=== PATIENT | female | born 1945 | race Caucasian/White ===

== ENCOUNTER → 2022-08-03 13:10 | Outpatient (BNVA) | payer MEDICARE, SELFPAY | PROVIDERS: PCP Internal Medicine; Visit Provider Psychiatry & Neurology Psychiatry | DX: F33.42 Major depressive disorder, recurrent, in full remission (principal) | CPT/HCPCS: 90833; 99212 ==

== ENCOUNTER 2023-03-16 14:52 | Outpatient (AMB) | payer MEDICARE, SELFPAY ==
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
== END 2023-03-16 17:43 | disposition home or self-care (01) ==
LOC: HO.HOP 14:52
PROVIDERS: PCP Internal Medicine; Visit Provider Psychiatry & Neurology Psychiatry
DX: F33.42 Major depressive disorder, recurrent, in full remission (principal)
CPT/HCPCS: 90833; 99213

== ENCOUNTER → 2023-03-16 14:52 | Outpatient (BNVA) | payer MEDICARE, SELFPAY | PROVIDERS: PCP Internal Medicine; Visit Provider Psychiatry & Neurology Psychiatry | DX: F33.42 Major depressive disorder, recurrent, in full remission (principal); Z79.899 Other long term (current) drug therapy | CPT/HCPCS: 99212 ==

== ENCOUNTER 2023-06-29 13:51 | Outpatient (AMB) | payer MEDICARE, SELFPAY ==
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
== END 2023-06-29 14:41 | disposition home or self-care (01) ==
LOC: HO.HOP 13:51
PROVIDERS: PCP Internal Medicine; Visit Provider Psychiatry & Neurology Psychiatry
DX: F33.42 Major depressive disorder, recurrent, in full remission (principal); F43.10 Post-traumatic stress disorder, unspecified
CPT/HCPCS: 90833; 99213

== ENCOUNTER → 2023-06-29 13:51 | Outpatient (BNVA) | payer MEDICARE, SELFPAY | PROVIDERS: PCP Internal Medicine; Visit Provider Psychiatry & Neurology Psychiatry | DX: F33.42 Major depressive disorder, recurrent, in full remission (principal); F43.10 Post-traumatic stress disorder, unspecified | CPT/HCPCS: 99212 ==

== ENCOUNTER 2023-11-29 13:54 | Outpatient (AMB) | payer MEDICARE, SELFPAY ==
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
== END 2023-11-29 14:51 | disposition home or self-care (01) ==
LOC: HO.HOP 13:54
PROVIDERS: PCP Internal Medicine; Visit Provider Psychiatry & Neurology Psychiatry
DX: F33.42 Major depressive disorder, recurrent, in full remission (principal); F43.10 Post-traumatic stress disorder, unspecified
CPT/HCPCS: 90833; 99213

== ENCOUNTER → 2023-11-29 13:54 | Outpatient (BNVA) | payer MEDICARE, SELFPAY | PROVIDERS: PCP Internal Medicine; Visit Provider Psychiatry & Neurology Psychiatry | DX: F33.42 Major depressive disorder, recurrent, in full remission (principal); F43.10 Post-traumatic stress disorder, unspecified; Z71.89 Other specified counseling; Z79.899 Other long term (current) drug therapy | CPT/HCPCS: 99212 ==

== ENCOUNTER 2024-04-24 14:09 | Outpatient (AMB) | payer MEDICARE, SELFPAY ==
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
--- OUTSIDE RECORDS SUMMARY | 2024-04-24 17:25 | XMS_ITS | Clinical Summary ---
Author Organization [facility] [address] [place] [address] [place] [phone] Phone Care Team Providers Care Medical Research Scientist Name Role Phone Luna Benitez MD Primary Care Provider [phone] Allergies Active Allergy Reactions Criticality Noted Date Comments Epinephrine High 03/18/2005 Medications albuterol HFA (PROAIR HFA ; PROVENTIL HFA ; VENTOLIN HFA) 90 mcg/actuation inhaler Inhale 2 puffs by mouth every 4 (four) hours if needed for wheezing or shortness of breath. Cough 0 Active aspirin 325 mg tablet Take 1 tablet (325 mg total) by mouth 1 (one) time each day. Active cholecalciferol (VITAMIN D-3) 50 mcg (2,000 unit) capsule Take 1 capsule (2,000 Units total) by mouth 1 (one) time each day. Active doxepin 3 mg tablet Take by mouth at bedtime. 1/[address] Ferraro 3 Active ferrous sulfate 325 mg (65 mg elemental iron) tablet Take by mouth 1 (one) time each day. Half tab Active docosahexaenoic acid/epa (FISH OIL ORAL) by Not Applicable route. Active FLUoxetine (PROzac) 20 mg capsule Take 1 capsule (20 mg total) by mouth 1 (one) time each day in the morning. 2 Active MULTIVITAMIN ORAL Take 1 tablet by mouth 1 (one) time each day. Active acetaminophen (Tylenol Arthritis Pain) 650 mg 8 hr tablet Take 2 tablets (1,300 mg total) by mouth every 8 (eight) hours if needed. Active sulindac (CLINORIL) 200 mg tablet Take 1 tablet (200 mg total) by mouth 1 (one) time each day if needed for mild pain. 90 tablet 1 5 Active magnesium 250 mg tablet Take by mouth. Activ e lovastatin (MEVACOR) 40 mg tablet Take 1 tablet (40 mg total) by mouth at bedtime. at bedtime. 90 tablet 1 5 Active Active Problems Problem Noted Date Diagnosed Date Osteopenia 04/30/2021 Overview (01/15/2024): 04/29/21- 14% risk of major osteoporotic fracture and 2.1% risk of hip fracture over the next 10 years. Insomnia 05/03/2020 Arthritis 04/25/2019 Assessment & Plan (03/23/2024 3:26 PM EST): Continue with sulindac as needed. Pure hypercholesterolemia 03/23/2005 Assessment & Plan (03/23/2024 3:26 PM EST): Continue with lovastatin, recheck lipid panel Orders: Comprehensive metabolic panel; Future Lipid panel with reflex to direct LDL; Future CBC and differential; Future Abnormality of gait 03/18/2005 Overview (01/15/2024): MINIMAL DUE TO CVA Depressive disorder 03/18/2005 Headache 03/18/2005 Ostium secundum type atrial septal defect 2005 Bundle branch block, left 03/18/2005 Acute, but ill-defined, cerebrovascular disease 03/18/2005 Encounters Date Type Department Care Team Description 03/23/2024 1:30 PM EST Office Visit Adult Medicine [address] [phone] Luna Benitez MD Encounter for annual wellness visit (AWV) in Medicare patient (Primary Dx); Pure hypercholesterolemia; Other specified disorders of bone density and structure, other site; Arthritis from Last 3 Months Immunizations Name Administration Dates Next Due Influenza trivalent, 0.5mL (Fluad) 65yo and olde r 11/26/2022,01/22/2021 Influenza trivalent, 0.5mL, preservative free (Fluarix; FluLaval; Fluzone) ages 6mo and older (Afluria) 3 years and older 11/26/2010 Pfizer SARS-CoV-2 COVID-19, mRNA, LNP-S, preservative free 06/06/2020,05/14/2020 Pneumococcal conjugate 20 [facility] (Prevnar 20, PCV 20) 2mo and older 10/24/2022 Respiratory syncytial virus (RSV), unspecified 1 Td Tetanus diptheria (Tdvax) 7yo and older 05/27 Tdap Tetanus diptheria acell ular pertussis (Boostrix; Adacel) 7yo and older 07/14/2022,09/08/2011 Surgical History Surgery Date Site/Laterality Comments OTHER SURGICAL HISTORY PROCEDURE: [place] OBLTRJ AORTOPULMONARY SEPTAL DEFECT W/O BYPASS; COMMENT: ATRIAL, CLOSURE AT [facility] GENERAL COLONOSCOPY 05/10/08 PROCEDURE: MN COLONOSCOPY STOMA DX INCLUDING COLLJ SPEC SPX; COMMENT: Up to cecum, good preparation, normal colon exam Medical History Medical History Date Comments Depressive disorder, not els ewhere classified DX:Depressive disorder, not elsewhere classified Other left bundle branch block D X:Other left bundle branch block Acute, but ill-defined, cerebrovascular disease DX:Acute, but ill-defined, cerebrovascular disease; 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 0) Abnormality of gait DX:Abnormali ty of gait; COMMENT: MINIMAL DUE TO CVA Ostium secundum type atrial septal defect DX:Ostium secundum type atri al septal defect Other left bundle branch block 03/18/2005 D X:Other left bundle branch block Ostium secundum type atrial septal defect 03/18/2005 DX:Ostium secundum type atri al septal defect Arthritis 04/25/2019 DX:Arthritis Acute, but ill-defined, cerebrovascular disease 03/18/2005 Family History Medical History Relation Name Comments Other: extra chromosone Brother 1 Other: nystygmas Daughter 1 Coronary artery disease Father Heart attack Father 36 AND 56 Y/O ( at 56) Hyperlipidemia Father high Hypertension Father Other: heart Father Other: parkinsons Maternal Grandmother Allergies Mother Heart failure Mother at 89 Hyperlipidemia Mother high Other: blood clot in leg Mother Other: detached retina Mother Breast cancer Other mat and pat cousins Mental illness Paternal Grandmother Arthritis Sister 1 Other: blood clot in leg Sister 2 Other: add Son 1 Colon cancer Neg Hx Ovarian cancer Neg Hx Relation Name Status Comments Brother 1 Brother 2 Alive Daughter 1 Daughter 2 Alive Father [place], 1ST AGE 36 Maternal Grandfather Maternal Grandmother Mother CHF Other mat and pat cousins Paternal Grandfather Paternal Grandmother Sister 1 Sister 2 Sister 3 Alive Son 1 Son 2 Alive Son 3 Alive Social History Tobacco Use Types Packs/Day Years Used Date Smoking Tobacco: Never Smokeless Tobacco: Never Tobacco Cessation:Counseling Given: Not Answered Alcohol Use Standard Drinks/Week Comments Yes 0 (1 standard drink = 0.6 oz pur e alcohol) Comments No Sex and Gender Information Value Date Recorded Sex Assigned at Not on file Legal Sex Female 6:25 PM EST Gender Identity Not on file Sexual Orientation Not on file Obstetrics History Last Filed Vital Signs Vital Sign Reading Time Taken Comments Blood Pressure 128/80 03/23/2024 1:54 PM EST Pulse 72 03/23/2024 1:54 PM EST Temperature 36.6 ??C (97.9 ??F) 03/23/2024 1:54 PM ES T Respiratory Rate 14 03/23/2024 1:54 PM EST Oxygen Saturation - - Inhaled Oxygen Concentration - - Weight 101 kg (223 lb) 03/23/2024 1:54 PM EST Height 160 cm (5' 3 ) 03/23/2024 1:54 PM EST Body Mass Index 39.5 03/23/2024 1:54 PM EST Plan of Treatment Upcoming Encounters Date Type Department Care Team (Late st Contact Info) Description 06/26/2024 2:00 PM EDT Appointment Bone Density - [address] [phone] 09/20/2024 1:00 PM EDT Office Visit Adult Medicine [place] - [address] [phone] Luna Benitez MD [address] [place] [phone] 09/26/2024 1:20 PM EDT Appointment Radiology Department - [address] [phone] Health Maintenance Due Date Last Done Comments Social Influencers of Health Screening 01/16/2022 COVID-19 Vaccine ( - season) 2023 01/26/2021, 06/06/2020, 05/14/2020 Influenza Vaccine (#1) 2023 , 03/11/2022, 01/22/2021, Additional history exists Depression Screening 03/23/2025 03/23/2024, 03/15/19 24 Falls Risk Assessment 03/23/2025 03/23/2024 Medicare Annual Wellness Visit 03/23/2025 03/23/2024 Colorectal Cancer Screening: FIT-DNA (Cologuard) 08/13/2025 08/13/2022 Cholesterol Screening (Lipid Panel) 04/17/2029 04/17/2024, 09/01/2023, 09/01/2023 Osteoporosis Screening (Bone Density Screening) 04/30/2031 04/29/2021 DTaP,Tdap,and Td Vaccines (4 - Td or Tdap) 07/14/2032 07/14/2022, 09/08/2011, 05/27/2000 Hepatitis C Screening Completed 08/26/2017 Pneumococcal Vaccine: 50+ Years Completed 10/24/2022 Zoster Vaccines Completed 11/14/2022, 05/14/2022 RSV Immunization Patients 60+ Years Old Completed 11/26/2022, 11/14/2022 RSV Immunization Patients Under 20 months Aged Out 11/26/2022 No longer eligible based on patient's age to complete this topic HIB Vaccines Aged Out No longer eligi ble based on patient's age to complete this topic HPV Vaccines Aged Out No longer eligi ble based on patient's age to complete this topic Hepatitis A Vaccines Aged Out No long er eligible based on patient's age to complete this topic Hepatitis B Vaccines Aged Out No long er eligible based on patient's age to complete this topic IPV Vaccines Aged Out No longer eligi ble based on patient's age to complete this topic MMR Vaccines Aged Out No longer eligi ble based on patient's age to complete this topic Meningococcal ACWY Vaccine Aged Out N o longer eligible based on patient's age to complete this topic Meningococcal B Vacine Aged Out No lo nger eligible based on patient's age to complete this topic Varicella Vaccines Aged Out No longer eligible based on patient's age to complete this topic Procedures Procedure Name Priority Date/Time Associated Diagnosis Comments CBC WITH AUTO DIFFERENTIAL Routine 04/17/2024 12:31 PM EST Pure hypercholesterolemia COMPREHENSIVE METABOLIC PANEL Routine 04/17/2024 12:31 PM EST Pure hypercholesterolemia LIPID PANEL WITH REFLEX TO DIRECT LDL Routine 04/17/2024 12:31 PM EST Pure hypercholesterolemia CBC AND DIFFERENTIAL Routine 04/17/2024 12:31 PM EST Pure hypercholesterolemia DEPRESSION SCREENING Routine 03/15/2023 DXA BONE DENSITY STUDY 1+ SITS AXIAL SKEL Routine 04/29/2021 11:23 AM EDT Encounter for screening for osteoporosis HEPATITIS C SCREENING Routine 08/26/2017 from Last 3 Months or Most Recently Relevant to Health Maintenance Results * (ABNORMAL) Lipid panel with reflex to direct LDL (04/17/2024 12:31 PM EST) Cholesterol 179 0 - 200 mg/dL LAB CHEMISTRY METHOD 04/17/2024 4:56 PM [facility] Triglycerides 80 0 - 150 mg/dL LAB CHEMISTRY METHOD 04/17/2024 4:56 PM [facility] HDL 59 >=40 mg/dL LAB CHEMISTRY METHOD 04/17/2024 4:56 PM [facility] LDL Calculated 104(H) 0 - 100 mg/dL LAB CHEMISTRY METHOD 04/17/2024 4:56 PM [facility] VLDL Cholesterol Cornelio 16 mg/dL LAB CHEMISTRY METHOD 04/17/2024 4:56 PM [facility] Non HDL Chol. (LDL+VLDL) 120 <145 mg/dL LAB CHEMISTRY METHOD 04/17/2024 4:56 PM [facility] Chol/HDL Ratio 3.0 0.0 - 4.4 LAB CHEMISTRY METHOD 04/17/2024 4:56 PM [facility] Blood Venous blood specimen / Unknown Venipuncture / Unknown 04/17/2024 12:31 PM EST 04/17/2024 12:31 PM EST us Luna Benitez MD LAB BLOOD ORDERABLES Final Resul t [facility] [address] [place] [address], * (ABNORMAL) CBC auto differential (04/17/2024 12:31 PM EST) WBC 5.8 4.8 - 10.8 K/mcL LAB HEMETOLOGY METHOD 04/17/2024 3:39 PM [facility] RBC 3.90 3.80 - 4.80 M/mcL LAB HEMETOLOGY METHOD 04/17/2024 3:39 PM [facility] Hemoglobin 12.6 11.5 - 16.0 g/dL LAB HEMETOLOGY METHOD 04/17/2024 3:39 PM [facility] Hematocrit 38.1 35.0 - 47.0 % LAB HEMETOLOGY METHOD 04/17/2024 3:39 PM [facility] MCV 98.7(H) 79.0 - 98.0 FL LAB HEMETOLOGY METHOD 04/17/2024 3:39 PM [facility] MCH 32.6(H) 27.0 - 32.0 pcg LAB HEMETOLOGY METHOD 04/17/2024 3:39 PM [facility] MCHC 33.1 32.0 - 37.0 g/dL LAB HEMETOLOGY METHOD 04/17/2024 3:39 PM [facility] RDW 13.2 11.0 - 15.0 % LAB HEMETOLOGY METHOD 04/17/2024 3:39 PM [facility] Platelets 283 130 - 400 K/mcL LAB HEMETOLOGY METHOD 04/17/2024 3:39 PM [facility] MPV 10.6 7.0 - 11.0 FL LAB HEMETOLOGY METHOD 04/17/2024 3:39 PM [facility] NRBC 0.0 <1.0 % LAB HEMETOLOGY METHOD 04/17/2024 3:39 PM [facility] NRBC Absolute 0.00 <0.10 K/mcL LAB HEMETOLOGY METHOD 04/17/2024 3:39 PM [facility] Neutrophils Relative 68.6 % LAB HEMETOLOGY METHOD 04/17/2024 3:39 PM [facility] Lymphocytes Relative 17.7 % LAB HEMETOLOGY METHOD 04/17/2024 3:39 PM [facility] Monocytes Relative 6.3 % LAB HEMETOLOGY METHOD 04/17/2024 3:39 PM [facility] Eosinophils Relative 6.3 % LAB HEMETOLOGY METHOD 04/17/2024 3:39 PM [facility] Basophils Relative 0.9 % LAB HEMETOLOGY METHOD 04/17/2024 3:39 PM [facility] Immature Granulocytes Relative 0.2 % LAB HEMETOLOGY METHOD 04/17/2024 3:39 PM [facility] Neutrophils Absolute 4.00 1.50 - 7.00 K/mcL LAB HEMETOLOGY METHOD 04/17/2024 3:39 PM [facility] Lymphocytes Absolute 1.03 1.00 - 5.00 K/mcL LAB HEMETOLOGY METHOD 04/17/2024 3:39 PM [facility] Monocytes Absolute 0.37 0.20 - 1.00 K/mcL LAB HEMETOLOGY METHOD 04/17/2024 3:39 PM [facility] Eosinophils Absolute 0.37 0.00 - 0.50 K/mcL LAB HEMETOLOGY METHOD 04/17/2024 3:39 PM [facility] Basophils Absolute 0.05 0.00 - 0.20 K/mcL LAB HEMETOLOGY METHOD 04/17/2024 3:39 PM [facility] Immature Granulocytes Absolute 0.01 0.00 - 0.03 K/mcL LAB HEMETOLOGY METHOD 04/17/2024 3:39 PM [facility] Blood Venous blood specimen / Unknown Venipuncture / Unknown 04/17/2024 12:31 PM EST 04/17/2024 12:31 PM EST us Luna Benitez MD LAB BLOOD ORDERABLES Final Resul t [facility] [address] [place] [address], * Comprehensive metabolic panel (04/17/2024 12:31 PM EST) Sodium 140 133 - 145 mmol/L LAB CHEMISTRY METHOD 04/17/2024 4:56 PM [facility] Potassium 4.6 3.5 - 5.5 mmol/L LAB CHEMISTRY METHOD 04/17/2024 4:56 PM [facility] Chloride 108 96 - 110 mmol/L LAB CHEMISTRY METHOD 04/17/2024 4:56 PM [facility] CO2 28 21 - 32 mmol/L LAB CHEMISTRY METHOD 04/17/2024 4:56 PM [facility] Anion Gap 4 3 - 11 LAB CHEMISTRY METHOD 04/17/2024 4:56 PM [facility] Glucose 90 70 - 100 mg/dL LAB CHEMISTRY METHOD 04/17/2024 4:56 PM [facility] BUN 19 5 - 25 mg/dL LAB CHEMISTRY METHOD 04/17/2024 4:56 PM [facility] Creatinine 0.86 0.50 - 1.10 mg/dL LAB CHEMISTRY METHOD 04/17/2024 4:56 PM [facility] eGFR 70 >=60 mL/min/1. 73m2 LAB CHEMISTRY METHOD 04/17/2024 4:56 PM [facility] Comment:Calculation based on the??Chronic Kidney Disease Epidemiology Collaboration (CKD-EPI) equation refit??without adjustment for race. BUN/Creatinine Ratio 22.1 LAB CHEMISTRY METHOD 04/17/2024 4:56 PM [facility] Calcium 9.0 8.5 - 10.5 mg/dL LAB CHEMISTRY METHOD 04/17/2024 4:56 PM [facility] AST (SGOT) 18 10 - 42 unit/L LAB CHEMISTRY METHOD 04/17/2024 4:56 PM [facility] ALT (SGPT) 23 10 - 60 unit/L LAB CHEMISTRY METHOD 04/17/2024 4:56 PM [facility] Alkaline Phosphatase 108 42 - 121 unit/L LAB CHEMISTRY METHOD 04/17/2024 4:56 PM [facility] Total Protein 6.5 6.0 - 8.0 g/dL LAB CHEMISTRY METHOD 04/17/2024 4:56 PM [facility] Albumin 3.6 3.2 - 5.0 g/dL LAB CHEMISTRY METHOD 04/17/2024 4:56 PM [facility] Total Bilirubin 0.5 0.0 - 1.4 mg/dL LAB CHEMISTRY METHOD 04/17/2024 4:56 PM [facility] Blood Venous blood specimen / Unknown Venipuncture / Unknown 04/17/2024 12:31 PM EST 04/17/2024 12:31 PM EST us Luna Benitez MD LAB BLOOD ORDERABLES Final Resul t [facility] [address] [place] [address], * Depression Screening (03/15/2023) Depression Screening abstracted Historical Provider HEALTH MAINTENANCE Final Result * DXA BONE DENSITY STUDY 1+ SITS AXIAL SKEL (04/29/2021 11:23 AM EDT) Anatomical Region Laterality Modality Bone Densitometr y 04/25/2019 11:2 0 AM EDT Narrative 04/29/2021 6:11 PM EDT BONE DENSITY SCAN (DEXA): FINDINGS: Lumbar Spine T-score is 0.5. ?? (SD relative to 20-29 y/o adult) Z-score is 2.8. ??(SD relative to age matched peers) This is considered normal by WHO criteria. Left Hip T-score is -1.3. Z-score is 0.7. This is considered osteopenia by WHO criteria. Comparison exam(s): 01/03/2009 at 12/31/2005. Lumbar spine: 18.0% increase in bone mineral density compared with 2008, statistically significant at the 95% confidence level. ??No statistically significant change compared with 2005. Left hip: 11.7% decrease in bone mineral density compared with 2008, statistically significant at the 95% confidence level. ??No statistically significant change compared with 2005. IMPRESSION: IMPRESSION: Osteopenia by WHO criteria. This patient has a 14% risk of major osteoporotic fracture and a 2.1% risk of hip fracture over the next 10 years. (World Health Organization Fracture Risk Assessment) [facility] Department of Internal Medicine recommends using National Osteoporosis Foundation (NOF) guidelines in treatment decisions related to osteoporosis. NOF guidelines suggest considering treatment for postmenopausal women and men aged 50 or older presenting with the following: History of hip or vertebral fracture. T-score = -2.5 (DXA) at the femoral neck, total hip, or spine, after appropriate evaluation to exclude secondary causes. Low bone mass (T-score between -1.0 and -2.5 at the femoral neck or spine) AND a 10-year probability of a hip fracture = 3% OR a 10-year probability of a major osteoporosis-related fracture = 20% based on the [place]-adapted WHO algorithm Please note that all treatment decisions require clinical judgment and consideration of individual patient factors, including patient preferences, co-morbidities, previous drug use, risk factors not captured in the FRAX model (e.g., frailty, falls, vitamin D deficiency, increased bone turnover, interval significant decline in bone density) and possible under- or over-estimation of fracture risk by FRAX. Optional alternative screening schedule based on julieta Tejead., [facility] March 04, 2011 for patients with osteopenia (based on hip BMD T-score) is as follows: * ??advanced osteopenia (T scores -2.00 to -2.49), BMD testing every year * ??moderate osteopenia (T scores -1.50 to -1.99), BMD testing every 5 years mild osteopenia or normal BMD (T scores -1.50 and higher), BMD testing every 15 years Procedure Note Blanche Pearson MD - 02/02/2022 BONE DENSITY SCAN (DEXA): FINDINGS: Lumbar Spine T-score is 0.5. (SD relative to 20-29 y/o adult) Z-score is 2.8. (SD relative to age matched peers) This is considered normal by WHO criteria. Left Hip T-score is -1.3. Z-score is 0.7. This is considered osteopenia by WHO criteria. Comparison exam(s): 01/03/2009 at 12/31/2005. Lumbar spine: 18.0% increase in bone mineral density compared with 2008,statistically significant at the 95% confidence level. No statistically significantchange compared with 2005. Left hip: 11.7% decrease in bone mineral density compared with 2008,statistically significant at the 95% confidence level. No statistically significant change comparedwith 2005. IMPRESSION: IMPRESSION: Osteopenia by WHO criteria. This patient has a 14% risk of majorosteoporotic fracture and a 2.1% risk of hip fracture over the next 10 years. (World HealthOrganization Fracture Risk Assessment) [facility] Department of Internal Medicine recommendsusing National Osteoporosis Foundation (NOF) guidelines in treatment decisions related toosteoporosis. NOF guidelines suggest considering treatment for postmenopausal women and menaged 50 or older presenting with the following: History of hip or vertebral fracture. T-score = -2.5 (DXA) at the femoral neck, total hip, or spine, afterappropriate evaluation to exclude secondary causes. Low bone mass (T-score between -1.0 and -2.5 at the femoral neck or spine)AND a 10-year probability of a hip fracture = 3% OR a 10-year probability of a majorosteoporosis-related fracture = 20% based on the [place]-adapted WHO algorithm Please note that all treatment decisions require clinical judgment andconsideration of individual patient factors, including patient preferences, co- morbidities,previous drug use, risk factors not captured in the FRAX model (e.g., frailty, falls, vitaminD deficiency, increased bone turnover, interval significant decline in bone density) andpossible under- or over-estimation of fracture risk by FRAX. Optional alternative screening schedule based on [facility]i [facility]eda [facility]., [facility] for patients with osteopenia (based on hip BMD T-score) is as follows: * advanced osteopenia (T scores -2.00 to -2.49), BMD testing every year * moderate osteopenia (T scores -1.50 to -1.99), BMD testing every 5years mild osteopenia or normal BMD (T scores -1.50 and higher), BMD testingevery 15 years Vianca WALDRON IMG DXA PROCEDURES Final R esult * Hepatitis C Screening (08/26/2017) [facility] Hepatitis C Screening abstracted Historical Provider HEALTH MAINTENANCE Final Result from Last 3 Months or Most Recently Relevant to Health Maintenance Insurance MEDICARE [facility] Care Teams Medical Research Scientist Relationship Specialty Start Date End Date Luna Benitez MD [address] [place] [id number] PCP - General Internal Medicine 07/22/21
== END 2024-04-24 14:12 | disposition home or self-care (01) ==
LOC: HO.HOP 14:09
PROVIDERS: PCP Internal Medicine; Visit Provider Psychiatry & Neurology Psychiatry
DX: F33.42 Major depressive disorder, recurrent, in full remission (principal); F43.10 Post-traumatic stress disorder, unspecified
CPT/HCPCS: 99214

== ENCOUNTER → 2024-04-24 14:09 | Outpatient (BNVA) | payer MEDICARE, SELFPAY | PROVIDERS: PCP Internal Medicine; Visit Provider Psychiatry & Neurology Psychiatry | DX: F33.42 Major depressive disorder, recurrent, in full remission (principal); F43.10 Post-traumatic stress disorder, unspecified | CPT/HCPCS: 99212 ==

== ENCOUNTER 2025-01-31 11:30 | Outpatient (AMB) | payer MEDICARE, SELFPAY ==
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
--- OUTSIDE RECORDS SUMMARY | 2025-01-31 15:09 | XMS_ITS | Clinical Summary ---
Author Organization [facility] Address [address] [place] [address] Phone Care Team Providers Care Fitness Leader Name Role Phone Pcp, Unknown Primary Care Provider Unavailabl e Allergies Active Allergy Reactions Criticality Noted Date Comments Epinephrine Other (See Comments) 09/04/2003 excessive tachycardia Medications lovastatin (MEVACOR) 40 MG tablet Take 40 mg by mouth nightly at bedtime. Active cholecalciferol 125 mcg/mL (5,000 unit/mL) oral drops Take by mouth. Acti ve sulindac (CLINORIL) 200 MG tabletIndicatio ns:using once daily Take 200 mg by mouth 2 (two) times a day with meals. Indications: using once daily Active FLUoxetine (PROZAC) 20 MG tablet Take 20 mg by mouth daily. Active ALBUTEROL INHL Inhale into the lungs. Active aspirin 325 MG tablet Take 325 mg by mouth daily. Active FA/mv,Ca,iron,m in/lycopene/lut (MULTIVITAL ORAL) Take by mouth. Activ e pseudoephedrine (SUDAFED) 60 MG tablet Take 1 tablet (60 mg total) by mouth every 6 (six) hours as needed for congestion. 30 tablet 0 Active Additional Information Patient not taking.Reported on 08/31/2021 AMOXICILLIN ORAL Take by mouth. Activ e acetaminophen (TYLENOL) 500 MG tablet Take 500 mg by mouth every 6 (six) hours as needed for pain (specific location in comments). Active Active Problems Problem Noted Date Diagnosed Date Hay fever 09/04/2003 Overview (05/03/2017): hayfever;PHS Allergy Remediation Social History Tobacco Use Types Packs/Day Years Used Date Smoking Tobacco: Never Smokeless Tobacco: Never Education Answer Date Recorded Are you interested in more education? Not on marcie e 06/14/2022 Are you concerned about learning? Not on file 06/14/2022 No 06/14/2022 No 06/14/2022 Digital Access Answer Date Recorded No 07/11/2022 No 07/11/2022 No 07/11/2022 Reliable internet access at home? Not on file 07/11/2022 Device with a working camera? Not on file Comments Unknown Sex and Gender Information Value Date Recorded Sex Assigned at Not on file Legal Sex Female 6:17 PM EST Gender Identity Not on file Sexual Orientation Not on file Last Filed Vital Signs Vital Sign Reading Time Taken Comments Blood Pressure 121/88 08/31/2021 2:33 PM EDT Pulse 68 08/31/2021 2:33 PM EDT Temperature 36.8 C (98.2 F) 08/31/2021 2:33 PM EDT Respiratory Rate 16 08/31/2021 2:33 PM EDT Oxygen Saturation 99% 08/31/2021 2:33 PM EDT Inhaled Oxygen Concentration - - Weight 97.5 kg (215 lb) 06/03/2020 12:57 PM EDT per pt Height 160 cm (5' 3 ) 03/12/2019 3:39 PM EST Body Mass Index 38.09 03/12/2019 3:39 PM EST Plan of Treatment Health Maintenance Due Date Last Done Comments LIPID PANEL 1947 DEPRESSION SCREENING 1959 HEPATITIS C SCREENING 08/20/1965 PNEUMOCOCCAL VACCINES (50+ years) (1 of 1 - PCV) 08/20/1997 ZOSTER VACCINES (1 of 2) 08/20/1997 OSTEOPOROSIS SCREENING INITI AL (ONE-TIME) 08/20/2012 Adult Td,Tdap Booster 09/07/2021 09/08/2011 , 05/27/2000 RSV VACCINE (1 - 1-dose 75+ series) 08/20/2022 INFLUENZA VACCINE (#1) 2024 , 11/26/2010 COVID-19 VACCINE (4 - 2024-2 6 season) 2024 01/26/2021, 06/06/2020, 05/14/2020 SMOKING STATUS SCREENING (On ce After 26 Yrs) Completed 08/31/2021 HEPATITIS A VACCINES Aged Out No long er eligible based on patient's age to complete this topic HIB VACCINES Aged Out No longer eligi ble based on patient's age to complete this topic MENINGOCOCCAL VACCINES (ACWY) Aged Out No longer eligible based on patient's age to complete this topic MENINGOCOCCAL VACCINES (B) Aged Out N o longer eligible based on patient's age to complete this topic Medical Devices Not on file Insurance [facility] MEDEX SUPPLEMENT MEDICARE PART A & B [employer] MEDEX SUPPLEMENT MEDICARE PART A & B [employer] MEDEX SUPPLEMENT MEDICARE PART A & B [employer] MED[employer] SUPPLEMENT MEDICARE PART A & B [employer] MED[employer] SUPPLEMENT MEDICARE PART A & B [employer] MEDEX SUPPLEMENT MEDICARE PART A & B [employer] MEDEX SUPPLEMENT MEDICARE PART A & B [facility] MEDEX SUPPLEMENT MEDICARE PART A & B [email or web address] CROSS MEDEX SUPPLEMENT Member Subscriber Plan / Payer (Ef fective 2012-Present) Name:Maeve Liang Relation to Subscriber:Self Name:Maeve Liang Payer ID:[id number] (NAIC) Type:Indemnity Address: [address] [place] [id number] Care Teams Fitness Leader Relationship Specialty Start Date End Date Pcp, Unknown PCP - General 08/31/21 Additional Source Comments The information contained in this document represents components of the legal health record. It is not the complete legal health record.[facility]
--- OUTSIDE RECORDS SUMMARY | 2025-01-31 15:09 | XMS_ITS ---
Author Name [facility] Organization Unknown Care Team Organization Name Specialty Phone Email Start Date End Da te [facility] ACO 10/03/2024 [facility] Luna Benitez Primary Care 07/23/2022 024 [facility] [place], PROVIDER Primary Care 12/22/202109/14
--- OUTSIDE RECORDS SUMMARY | 2025-01-31 15:09 | XMS_ITS | Clinical Summary ---
Author Organization [facility] [address] [place] [address] [place] [phone] Phone Care Team Providers Care Bridge Club Manager Name Role Phone Luna Benitez MD Primary Care Provider [phone] Allergies Active Allergy Reactions Criticality Noted Date Comments Epinephrine High 03/18/2005 Medications albuterol HFA (PROAIR HFA ; PROVENTIL HFA ; VENTOLIN HFA) 90 mcg/actuation inhaler Inhale 2 puffs by mouth every 4 (four) hours if needed for wheezing or shortness of breath. Cough 0 Active cholecalciferol (VITAMIN D-3) 50 mcg (2,000 unit) capsule Take 1 capsule (2,000 Units total) by mouth 1 (one) time each day. Active ferrous sulfate 325 mg (65 mg [...] every 8 (eight) hours if needed. Active magnesium 250 mg tablet Take by mouth. Activ e sulindac (CLINORIL) 200 mg tablet TAKE 1 TABLET(200 MG) BY MOUTH 1 TIME EACH DAY NEEDED FOR MILD PAIN 90 tablet 1 Active atorvastatin (LIPITOR) 40 mg tabletIndicatio ns:Coronary artery disease involving [place] coronary artery of [place] heart without angina pectoris Take 1 tablet (40 mg total) by mouth 1 (one) time each day. 30 each 5 11/22/19 26 Active aspirin 81 mg EC tabletIndicatio ns:Coronary artery disease involving [place] coronary artery of [place] heart without angina pectoris Take 1 tablet (81 mg total) by mouth 1 (one) time each day. 30 each 11/22/19 Active Active Problems Problem Noted Date Diagnosed Date Class 2 obesity 11/21/2024 Coronary artery disease invo lving [place] coronary artery of [place] heart without angina pectoris 11/21/2024 Overview (11/21/2024): 10/12/24 NM STRESS TEST WITH MYOCARDIAL PERFUSION 10/12/2024, 10/17/2024 10/12/2024 Impression 1. Abnormal pharmacological nuclear stress test. 2. Symptoms: No chest pain during the regadenoson infusion 3. Stress ECG: Nondiagnostic stress ECG in the setting of a baseline left bundle branch block. 4. Myocardial perfusion imaging: - Myocardial perfusion imaging of the left ventricle revealed a medium in size and mild in intensity mostly reversible perfusion defect in the mid to apical anterior wall and mid anteroseptal wall, suggestive of ischemia. - No fixed perfusion defects to suggest the presence of an infarct 5. TID was normal at 0.83. 6. Gated images revealed normal LV wall motion and thickening; with a normal LV systolic function (LVEF 78%). Signed by: Adriana Camejo NP on 10/12/2024 12:33 PM, Signed by: Roderick Gilliam MD on 10/17/2024 6:47 PM October 2024 - angiogram in setting of abnormal stress test, LBBB, and risk factors showing mild luminal irregularities of the LM and left circumflex, 50% mid LAD bifurcation lesion iFR negative, 50% stenosis of prox RCA - medical therapy recommended October 2024 - inpatient echocardiogram showing severe concentric left ventricular hypertrophy, preserved LV systolic function LVEF 55%, grade I diastolic dysfunction, noted Amplatzer septal occluder device, mild MR and AI Assessment & Plan (11/21/2024 11:01 AM EDT): Catheterization from 2024 showed moderate LAD and RCA disease (LAD iFR negative) with no other significant disease - medically managed. Last Nuclear stress test showed mid to apical anterior wall and mid anteroseptal wall ischemia which was felt to be false positive based on angiogram results. Echocardiogram from 2024 showed preserved LV systolic function with no RWMAs which is unusual given her LBBB. No anginal symptoms. Continue with baby aspirin. Will switch lovastatin to atorvastatin 40 mg daily. We discussed risk reduction through lifestyle choices including healthy diet, routine exercise and weight management. Orders: atorvastatin (LIPITOR) 40 mg tablet; Take 1 tablet (40 mg total) by mouth 1 (one) time each day. aspirin 81 mg EC tablet; Take 1 tablet (81 mg total) by mouth 1 (one) time each day. Cardiomyopathy 11/21/2024 Assessment & Plan (11/21/2024 11:01 AM EDT): Given her LBBB and severe concentric left hypertrophy without diagnosis of hypertension will get cardiac MRI. Orders: MR Cardiac Morphology and Function wo and w Contrast; Future History of closure of atrial septal defect (ASD) using septal occluder device 11/21/2024 Assessment & Plan (11/21/2024 11:31 AM EDT): Noted on echocardiogram. Assume this is related to previous history of CVA. Continue with aspirin. Acute chest pain 11/20/2024 Positive cardiac stress test 11/20/2024 Obesity, morbid 10/30/2024 Assessment & Plan (11/21/2024 11:31 AM EDT): BMI 39.20. We discussed risk reduction through lifestyle choices including healthy diet, routine exercise and weight management. Consider with GLP1 injection. History of CVA (cerebrovascular accident) 2024 Assessment & Plan (11/21/2024 11:31 AM EDT): No new or worsening neurologic symptoms. Continue with baby aspirin. Will switch lovastatin to atorvastatin 40 mg daily. We discussed risk reduction through lifestyle choices including healthy diet, routine exercise and weight management. Osteopenia 04/30/2021 Overview (01/15/2024): 04/29/21- 14% risk of major osteoporotic fracture and 2.1% risk of hip fracture over the next 10 years. Insomnia 05/03/2020 Arthritis 04/25/2019 Assessment & Plan (03/23/2024 3:26 PM EST): Continue with sulindac as needed. Pure hypercholesterolemia 03/23/2005 Assessment & Plan (11/21/2024 11:31 AM EDT): Last LDL 101. Will switch lovastatin to atorvastatin given coronary artery disease and history of CVA. Assessment & Plan (03/23/2024 3:26 PM EST): Continue with lovastatin, recheck lipid panel Orders: Comprehensive metabolic panel; Future Lipid panel with reflex to direct LDL; Future CBC and differential; Future Abnormality of gait 03/18/2005 Overview (01/15/2024): MINIMAL DUE TO CVA Depressive disorder 03/18/2005 Ostium secundum type atrial septal defect 2005 Bundle branch block, left 03/18/2005 Assessment & Plan (11/21/2024 11:31 AM EDT): Longstanding and apparently asymptomatic. Angiogram showed no attributable epicardial disease. Orders: ECG 12 lead MR Cardiac Morphology and Function wo and w Contrast; Future Hay fever 09/04/2003 Overview (11/21/2024): hayfever;PHS Allergy Remediation Resolved Problems Problem Noted Date Diagnosed Date Resolved Date Headache 03/18/2005 10/30/2024 Encounters Date Type Department Care Team Description 12/17/2024 10:35 AM EST Lab Draw Station [address] [phone] Cardiomyopathy, unspecified type (CMS/[facility] V24, CMS/HCC V28); Bundle branch block, left 12/12/2024 Telephone [facility] [address] [place] [address] aVughn Jansen MD 11/30/2024 Telephone [facility] [address] [place] [address] Sudarshan Thurston NP 11/21/2024 9:40 AM EDT Office Visit [facility] [address] [place] [address] Sudarshan Thurston NP Bundle branch block, left (Primary Dx); Pure hypercholesterolemia; Obesity, morbid (CMS/HCC V24, CMS/HCC V28); History of CVA (cerebrovascular accident); Coronary artery disease involving [place] coronary artery of [place] heart without angina pectoris; Cardiomyopathy, unspecified type (CMS/HCC V24, CMS/HCC V28); History of closure of atrial septal defect (ASD) using septal occluder device from Last 3 Months Immunizations Immunization Administration Dates Next Due Influenza trivalent, 0.5mL (Fluad) 65yo and olde r 11/26/2022,01/22/2021 Influenza trivalent, 0.5mL, preservative free (Fluarix; FluLaval; Fluzone) ages 6mo and older (Afluria) 3 years and older 11/26/2010 [employer] SARS-CoV-2 COVID-19, mRNA, LNP-S, preservative free 06/06/2020,05/14/2020 Pneumococcal conjugate 20 va lent (Prevnar 20, PCV 20) 2mo and older 10/24/2022 Respiratory syncytial virus (RSV), unspecified 1 Td Tetanus diptheria (Tdvax) 7yo and older 05/27 Tdap Tetanus diptheria acell ular pertussis (Boostrix; Adacel) 7yo and older 07/14/2022,09/08/2011 Surgical History Surgery Date Site/Laterality Comments OTHER SURGICAL HISTORY PROCEDURE: DC OBLTRJ AORTOPULMONARY SEPTAL DEFECT W/O BYPASS; COMMENT: ATRIAL, CLOSURE AT MASS GENERAL COLONOSCOPY 05/10/08 PROCEDURE: DC COLONOSCOPY STOMA DX INCLUDING COLLJ SPEC SPX; COMMENT: Up to cecum, good preparation, normal colon exam CARDIAC CATH DONE ON 10/19/2024 AT [facility] INDICATIONS:Unstable angina. Medical History Medical History Date Comments Acute, but ill-defined, cere brovascular disease DX:Acute, but ill-defined, cerebrovascular disease; COMMENT: Embolic due to ASD Abnormality of gait DX:Abnormali ty of gait; COMMENT: MINIMAL DUE TO CVA Ostium secundum type atrial septal defect DX:Ostium secundum type atri al septal defect CVA (cerebral vascular accid ent) ([facility] V24, [facility] V28) Hyperlipidemia Mood disorder ([facility] V24) Family History Medical History Relation Name Comments [...] Other: detached retina Mother Breast cancer Other m cousin 50s Breast cancer Paternal Cousin 50s Mental illness Paternal Grandmother Arthritis Sister 1 Other: blood clot in leg Sister 2 Other: add Son 1 Colon cancer Neg Hx Ovarian cancer Neg Hx Relation Name Status Comments Brother 1 Brother 2 Alive Daughter 1 Daughter 2 Alive Father [place], 1ST AGE 36 Maternal Grandfather Maternal Grandmother Mother CHF Other m cousin 50s Alive Paternal Cousin 50s Alive Paternal Grandfather Paternal Grandmother Sister 1 Sister 2 Sister 3 Alive Son 1 Son 2 Alive Son 3 Alive Social History Tobacco Use Types Packs/Day Years Used Date Smoking Tobacco: Never Smokeless Tobacco: Never Alcohol Use Standard Drinks/Week Comments Yes 0 (1 standard drink = 0.6 oz pur e alcohol) rarely Housing Instability Answer Date Recorde d Are you worried that in the next 2 months you may not have stable housing? No 10/29/2024 Food Access & Nutrition Answer Date Rec orded Do you have access to a vari ety of food including fruits and vegetables? Yes 10/29/2024 Access to Healthcare Answer Date Record ed Within the last 3 months, josue schmitt many times did you visit the emergency department for your medical care? 1 10/29/2024 Health Literacy Answer Date Recorded How often do you need to hav e someone help you when you read instructions, pamphlets, or other written material from your doctor or pharmacy? Never 10/29/2024 Caregiver: How often do you need to have someone help you when you read instructions, pamphlets, or other written material from your doctor or pharmacy? Not on file 10/29/2024 Financial Risk Answer Date Recorded How hard is it for you to pa y for the very basics like food, housing, medical care, and air conditioning / heating? Not very hard 10/29/2024 Transportation Answer Date Recorded Has the lack of transportati on kept you from meetings, work, or from getting things needed for daily living? No Has the lack of transportati on kept you from medical appointments or from getting medications? No 10/29/2024 Social Isolation Answer Date Recorded How often do you feel lonely or isolated from th ose around you? Rarely 10/29/2024 Food Risk Answer Date Recorded Within the past 12 months we worried whether our food would run out before we got money to buy more. Never true 10/29/2024 Within the past 12 months th e food we bought just didn't last and we didn't have money to get more. Never true 10/29/2024 Dependent Care Answer Date Recorded Do you need help finding or paying for care for your loved ones. For example, childhood teacher or elderly care for an older adult? No 10/29/2024 Education Answer Date Recorded Do you think completing more education or training, like finishing a GED, going to college, or learning a trade, would be helpful for you? N/A 10/29/2024 Employment and Income Answer Date Recor ded During the last four weeks, have you been actively looking for work? No 10/29/2024 Living Situation Answer Date Recorded What is your living situation? Unrecognized valu e 10/29/2024 Comments No Sex and Gender Information Value Date Recorded Sex Assigned at Not on file Legal Sex Female 6:25 PM EST Gender Identity Not on file Sexual Orientation Not on file Obstetrics History Para Term AB IAB SAB Ectopic Multiple Livin g Live Births 3 3 3 Date Outcome GA Total Labor Labor/2nd/3rd Weight Sex Type Anes PTL Krystal A1 A5 Name Clin Term Term Term Last Filed Vital Signs Vital Sign Reading Time Taken Comments Blood Pressure 118/86 11/21/2024 10:04 AM EDT Pulse 75 11/21/2024 10:04 AM EDT Temperature 36.6 C (97.8 F) 10/30/2024 9:09 AM EDT Respiratory Rate 16 10/30/2024 9:09 AM EDT Oxygen Saturation 95% 11/21/2024 10:04 AM EDT Inhaled Oxygen Concentration - - Weight 100 kg (221 lb 4.8 oz) 11/21/2024 10:04 A M EDT Height 160 cm (5' 3 ) 11/21/2024 10:04 AM EDT Body Mass Index 39.2 11/21/2024 10:04 AM EDT Plan of Treatment Health Maintenance Due Date Last Done Comments COVID-19 Vaccine ( season) 2024 01/26/2021, 06/06/2020, 05/14/2020 Influenza Vaccine (#1) 2024 , 03/11/2022, 01/22/2021, Additional history exists Falls Risk Assessment 03/23/2025 03/23/2024 Medicare Annual Wellness Visit 03/23/2025 03/23/2024 Colorectal Cancer Screening: FIT-DNA (Cologuard) 08/13/2025 08/13/2022 Social Influencers of Health Screening 10/29/2025 10/29/2024 Hypertension/CHF/CAD Annual BMP Blood Test 12/17/2025 12/17/2024, 10/02/2024, 04/17/2024, Additional history exists Cholesterol Screening (Lipid Panel) 10/02/2029 10/02/2024, 04/17/2024, 09/01/2023, Additional history exists DTaP,Tdap,and Td Vaccines (4 - Td or Tdap) 07/14/2032 07/14/2022, 09/08/2011, 05/27/2000 Osteoporosis Screening (Bone Density Screening) 06/26/2034 06/26/2024, 04/29/2021 Hepatitis C Screening Completed 08/26/2017 Pneumococcal Vaccine: 50+ Years Completed 10/24/2022 Zoster Vaccines Completed 11/14/2022, 05/14/2022 RSV Immunization Adult Patients Completed 11/26/2022, 11/14/2022 RSV Immunization Patients Under 20 months Aged Out 11/26/2022 No longer eligible based on patient's age to complete this topic Breast Cancer Screening Discontinued 09/26/2024 Depression Screening Completed 10/29/2024, 03/15/19 24 HIB Vaccines Aged Out No longer eligi [...] age to complete this topic Meningococcal B Vaccine Aged Out No l onger eligible based on patient's age to complete this topic Varicella Vaccines Aged Out No longer eligible based on patient's age to complete this topic Procedures Procedure Name Priority Date/Time Associated Diagnosis Comments EXTERNAL CARDIAC MRI Routine 12/26/2024 1:26 PM EST BASIC METABOLIC PANEL Routine 12/17/2024 10:41 AM EST Cardiomyopathy, unspecified type (CMS/HCC V24, CMS/HCC V28) Bundle branch block, left ECG 12-LEAD Routine 11/21/2024 11:34 AM EDT Bundle branch block, left LIPID PANEL WITH REFLEX TO DIRECT LDL Routine 10/02/2024 12:11 PM EDT Pure hypercholesterolemia MG MAMMO DIGITAL SCREENING W PABLO BILAT Routine 09/26/2024 1:35 PM EDT Visit for screening mammogram BD BONE DENSITY DXA AXIAL SKELETON Routine 06/26/2024 2:00 PM EDT Other specified disorders of bone density and structure, other site HM DEPRESSION SCREENING Routine 03/15/2023 HEPATITIS C SCREENING Routine 08/26/2017 from Last 3 Months or Most Recently Relevant to Health Maintenance Results * External Cardiac MRI (12/26/2024 1:26 PM EST) Anatomical Region Laterality Modality Cardiac Diagnost ic us Historical Provider [facility] TONY MCKAY Final Result * Basic metabolic panel (12/17/2024 10:41 AM EST) Sodium 142 133 - 145 mmol/L LAB CHEMISTRY METHOD 12/17/2024 12:30 PM [facility] Potassium 4.4 3.5 - 5.5 mmol/L LAB CHEMISTRY METHOD 12/17/2024 12:30 PM [facility] Chloride 110 96 - 110 mmol/L LAB CHEMISTRY METHOD 12/17/2024 12:30 PM [facility] CO2 28 21 - 32 mmol/L LAB CHEMISTRY METHOD 12/17/2024 12:30 PM [facility] Anion Gap 4 3 - 11 LAB CHEMISTRY METHOD 12/17/2024 12:30 PM [facility] Glucose 93 70 - 100 mg/dL LAB CHEMISTRY METHOD 12/17/2024 12:30 PM [facility] BUN 16 5 - 25 mg/dL LAB CHEMISTRY METHOD 12/17/2024 12:30 PM [facility] Creatinine 0.77 0.50 - 1.10 mg/dL LAB CHEMISTRY METHOD 12/17/2024 12:30 PM [facility] eGFR 80 >=60 mL/min/1. 73m2 LAB CHEMISTRY METHOD 12/17/2024 12:30 PM [facility] Comment:Calculation based on the Chronic Kidney Disease Epidemiology Collaboration (CKD-EPI) equation refit without adjustment for race. BUN/Creatinine Ratio 20.8 LAB CHEMISTRY METHOD 12/17/2024 12:30 PM [facility] Calcium 8.9 8.5 - 10.5 mg/dL LAB CHEMISTRY METHOD 12/17/2024 12:30 PM EST [facility] Blood Venous blood specimen / Unknown Venipuncture / Unknown 12/17/2024 10:41 AM EST 12/17/2024 10:41 AM EST Sudarshan Thurston APPLIANCE REPAIRER LAB BLOOD ORDERABLES Final Result Performing Organization Address City/[facility]/ZIP Co de Phone Number [facility] [address] [place] [address], [place] [phone] * ECG 12 lead (11/21/2024 11:34 AM EDT) Ventricular Rate ECG 75 BPM GEMUSE Atrial Rate 75 BPM GEMUSE P-R Interval 174 ms GEMUSE QRS Duration 140 ms GEMUSE Q-T Interval 408 ms GEMUSE QTc 455 ms GEMUSE P Wave Hoffman 42 degrees GEMUSE R Hoffman -24 degrees GEMUSE T Hoffman 123 degrees GEMUSE ECG Interpretation Normal sinus rhythm Left bundle branch block Abnormal ECG When compared with ECG of 03-OCT-2023 15:35, No significant change was found Confirmed by EDWARD TOBAR ([id number]) on 11/21/2024 11:39:57 AM GEMUSE 11/21/2024 10:1 3 AM EDT 11/21/2024 11:39 AM EDT Sudarshan Thurston APPLIANCE REPAIRER ECG ORDERABLES Edited Resu lt - Final Performing Organization Address City/[facility]/ZIP Co de Phone Number GEMUSE * (ABNORMAL) Lipid panel with reflex to direct LDL (10/02/2024 12:11 PM EDT) Cholesterol 188 0 - 200 mg/dL LAB CHEMISTRY METHOD 10/02/2024 5:02 PM EDT [facility] Triglycerides 150 0 - 150 mg/dL LAB CHEMISTRY METHOD 10/02/2024 5:02 PM EDT [facility] HDL 57 >=40 mg/dL LAB CHEMISTRY METHOD 10/02/2024 5:02 PM EDT [facility] LDL Calculated 101(H) 0 - 100 mg/dL LAB CHEMISTRY METHOD 10/02/2024 5:02 PM EDT [facility] Comment:Estimated LDL Calcul ated using equation: Total cholesterol - HDL cholesterol - (Triglycerides/5) VLDL Cholesterol Cornelio 30 mg/dL LAB CHEMISTRY METHOD 10/02/2024 5:02 PM EDT [facility] Non HDL Chol. (LDL+VLDL) 131 <145 mg/dL LAB CHEMISTRY METHOD 10/02/2024 5:02 PM EDT [facility] Chol/HDL Ratio 3.3 0.0 - 4.4 LAB CHEMISTRY METHOD 10/02/2024 5:02 PM EDT [facility] Blood Venous blood specimen / Unknown Venipuncture / Unknown 10/02/2024 12:11 PM EDT 10/02/2024 12:11 PM EDT us Luna Benitez MD LAB BLOOD ORDERABLES Final Resul t [facility] [address] [place] [address], [place] [phone] * MG Mammo Digital Screening w Pablo bilat (09/26/2024 1:35 PM EDT) Anatomical Region Laterality Modality Breast Bilateral Mammography 09/27/2024 1:40 PM EDT Impressions 09/27/2024 1:41 PM EDT No mammographic evidence of malignancy. BREAST DENSITY: B - There are scattered areas of fibroglandular density. BI-RADS CATEGORY: 1 - NEGATIVE RECOMMENDATION: Screening bilateral mammogram is recommended in 1 year. MAMMO LOCATION: [facility], [address] [place] [address], [phone], . -------- FINAL REPORT -------- Dictated By: Blanche Pearson Dictated Date: 09/27/2024 13:40 ET Assigned Physician: Blanche Pearson Reviewed and Electronically Signed By: Blanche Pearson Signed Date: 09/27/2024 13:41 ET Workstation ID: [id number] Transcribed By: Self Edit Transcribed Date: 09/27/2024 13:40 ET Narrative 09/27/2024 1:41 PM EDT EXAM: Screening Mammogram CLINICAL: 79 years old, Female, routine annual exam. COMPARISON: 01/02/2014 and as far back as 10/13/2011 TECHNIQUE: Bilateral MLO and CC views were obtained digitally with 3-D mammogram (digital breast tomosynthesis). Computer-aided detection was utilized in evaluation of this exam (CAD). FINDINGS: No new suspicious mass, architectural distortion, or suspicious calcifications. Procedure Note Blanche Pearson MD - 09/27/2024 EXAM: Screening Mammogram CLINICAL: 79 years old, Female, routine annual exam. COMPARISON: 01/02/2014 and as far back as 10/13/2011 TECHNIQUE: Bilateral MLO and CC views were obtained digitally with 3-Dmammogram (digital breast tomosynthesis). Computer-aided detection wasutilized in evaluation of this exam (CAD). FINDINGS: No new suspicious mass, architectural distortion, or suspiciouscalcifications. IMPRESSION: No mammographic evidence of malignancy. BREAST DENSITY: B - There are scattered areas of fibroglandular density. BI-RADS CATEGORY: 1 - NEGATIVE RECOMMENDATION: Screening bilateral mammogram is recommended in 1 year. MAMMO LOCATION: [facility], [address] [place] [address], [phone], . -------- FINAL REPORT -------- Dictated By: Blanche Pearson Dictated Date: 09/27/2024 13:40 ET Assigned Physician: Blanche Pearson Reviewed and Electronically Signed By: Blanche Pearson Signed Date: 09/27/2024 13:41 ET Workstation ID: [id number] Transcribed By: Self Edit Transcribed Date: 09/27/2024 13:40 ET us Luna Benitez MD IMG BI PROCEDURES Final Result * BD Bone Density DXA Axial Skeleton (06/26/2024 2:00 PM EDT) Anatomical Region Laterality Modality Wrist, Hip, L-spine Bone Densito metry 06/26/2024 7:28 PM EDT Impressions 06/26/2024 7:29 PM EDT Osteopenia. The NOF guidelines recommend that FDA approved medical therapies be considered in postmenopausal women and men age >50 years with a: i. Hip or vertebral (clinical or morphometric) fracture ii. T score of < -2.5 at the spine or hip iii. 10 year fracture probability by FRAX of >3% for hip fracture, or >20% for major osteoporotic fracture PLEASE NOTE: W.H.O. classification is based on lowest measured density at the spine, femoral neck, or total hip.This classification has prognostic significance when applied to post menopausal women and older men. 1) The World Health Organization defines low BMD as follows: T-score Normal at or > -1 Osteopenia < -1 and > -2.5 Osteoporosis at or < -2.5 without fractures Established osteoporosis < -2.5 with fractures -------- FINAL REPORT -------- Dictated By: Jose Salas Dictated Date: 06/26/2024 19:28 ET Assigned Physician: Jose Salas Reviewed and Electronically Signed By: Jose Salas Signed Date: 06/26/2024 19:29 ET Workstation ID: [id number] Transcribed By: Self Edit Transcribed Date: 06/26/2024 19:28 ET Narrative 06/26/2024 7:29 PM EDT Clinical history: Osteoporisis screening Scans of the lumbar spine and hips were performed on a [employer] fan beam bone densitometer. Bone mineral density measurements and associated T and Z scores respectively are as follows: Lumbar Spine: L1-L4 BMD: 1.113 g/cm2 T-Score: 0.6 Z-Score: 3.1 Left Proximal Femur: Neck BMD: 0.666 g/cm2 T-Score: -1.7 Z-Score: 0.5 Total BMD: 0.798 g/cm2 T-Score: -1.2 Z-Score: 0.7 Compared with standards for the young adult, lowest measured bone density places the patient in the W.H.O. osteopenic range. FRAX 10 year probability of major osteoporotic fracture: 17% FRAX 10 year probability of hip fracture: 3.3% Population: [place] () Procedure Note Jose Salas MD - 06/26/2024 Clinical history: Osteoporisis screening Scans of the lumbar spine and hips were performed on a [employer] beam bone densitometer. Bone mineral density measurements and associated T and Z scoresrespectively are as follows: Lumbar Spine: L1-L4 BMD: 1.113 g/cm2 T-Score: 0.6 Z-Score: 3.1 Left Proximal Femur: Neck BMD: 0.666 g/cm2 T-Score: -1.7 Z-Score: 0.5 Total BMD: 0.798 g/cm2 T-Score: -1.2 Z-Score: 0.7 Compared with standards for the young adult, lowest measured bone densityplaces the patient in the W.H.O. osteopenic range. FRAX 10 year probability of major osteoporotic fracture: 17% FRAX 10 year probability of hip fracture: 3.3% Population: [place] () IMPRESSION: Osteopenia. The NOF guidelines recommend that FDA approved medical therapies beconsidered in postmenopausal women and men age >50 years with a: i. Hip or vertebral (clinical or morphometric) fracture ii. T score of < -2.5 at the spine or hip iii. 10 year fracture probability by FRAX of >3% for hip fracture, or >20%for major osteoporotic fracture PLEASE NOTE: W.H.O. classification is based on lowest measured density at the spine,femoral neck, or total hip.This classification has prognostic significancewhen applied to post menopausal women and older men. 1) The World Health Organization defines low BMD as follows: T-score Normal at or > -1 Osteopenia < -1 and > -2.5 Osteoporosis at or < -2.5 withoutfractures Established osteoporosis < -2.5 with fractures -------- FINAL REPORT -------- Dictated By: Jose Salas Dictated Date: 06/26/2024 19:28 ET Assigned Physician: Jose Salas Reviewed and Electronically Signed By: Jose Salas Signed Date: 06/26/2024 19:29 ET Workstation ID: [id number] Transcribed By: Self Edit Transcribed Date: 06/26/2024 19:28 ET Luna Benitez MD IMG DXA PROCEDURES Final Result * Depression Screening (03/15/2023) Depression Screening abstracted Historical Provider HEALTH MAINTENANCE Final Result * Hepatitis C Screening (08/26/2017) Hepatitis C Screening abstracted Historical Provider HEALTH MAINTENANCE Final Result from Last 3 Months or Most Recently Relevant to Health Maintenance Insurance MEDICARE [facility] Care Teams [employer] Manager Relationship Specialty Start Date End Date Luna Benitez MD [address] [place] [phone] PCP - General Internal Medicine 07/22/21
== END 2025-01-31 12:13 | disposition home or self-care (01) ==
LOC: HO.HOP 11:30
PROVIDERS: PCP Internal Medicine; Visit Provider Psychiatry & Neurology Psychiatry
DX: F33.42 Major depressive disorder, recurrent, in full remission (principal); F43.10 Post-traumatic stress disorder, unspecified
CPT/HCPCS: 90833; 99213

== ENCOUNTER → 2025-01-31 11:30 | Outpatient (BNVA) | payer MEDICARE, SELFPAY | PROVIDERS: PCP Internal Medicine; Visit Provider Psychiatry & Neurology Psychiatry | DX: F33.42 Major depressive disorder, recurrent, in full remission (principal); F43.10 Post-traumatic stress disorder, unspecified | CPT/HCPCS: 99212 ==